=== PATIENT | female | born 1965 | race Caucasian/White ===

== ENCOUNTER 2023-01-20 15:19 | Emergency (ER) | payer MEDICARE, MEDICAID, SELFPAY ==
[2023-01-20 15:19] VITALS: BP 135/69; PULSE 90; RESP 18; TEMP 36.4; O2SAT 98
[2023-01-20 15:32] VITALS: BMI 39.7
[2023-01-20 15:34] VITALS: TEMP 36.4
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
--- NOTE | 2023-01-20 15:46 | RAD_ITS ---
EXAM: XR LUMBOSACRAL SPINE, 4 OR 5 VIEWS CLINICAL INDICATION: pain TECHNIQUE: Frontal, lateral and bilateral oblique views of the lumbar spine. This report was created using [employer] report [employer]ology technology. COMPARISON: None. FINDINGS: VERTEBRAE: There is anterior spondylolisthesis of L5 on S1 of 1.1 cm. Preserved vertebral body height. No fracture. Preservation of the normal lumbar lordosis. No significant facet arthropathy. DISC SPACES: No acute findings. Disc spaces are maintained. GASTROINTESTINAL TRACT: Unremarkable as visualized. Included bowel gas pattern is non-obstructive. RAD/L/S Spine Min 4 Views IMPRESSION: 1. No acute osseous abnormalities. 2. Anterior spondylolisthesis of L5 on S1. Electronically Signed: Fer Azevedo MD at 17:24 EDT ,
--- NOTE | 2023-01-20 15:46 | RAD_ITS ---
EXAM: XR CERVICAL SPINE, 2 OR 3 VIEWS CLINICAL INDICATION: pain TECHNIQUE: Frontal and lateral views of the cervical spine. This report was created using [employer] report generation technology. COMPARISON: None. FINDINGS: VERTEBRAE: Unremarkable. Preserved vertebral body height. No acute fracture. No spondylolisthesis. Preservation of the normal cervical lordosis. No significant facet arthropathy. DISC SPACES: There is disc space narrowing at C4-5, C5-6 and C6-7. SOFT TISSUES: Unremarkable. No prevertebral soft tissue widening. LUNG APICES: Clear. RAD/Cerv Spine 2 or 3 Views IMPRESSION: Degenerative changes with disc space narrowing. There is no acute osseous abnormality. Electronically Signed: Fer Azevedo MD at 16:17 EDT ,
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
[2023-01-20 16:45] VITALS: BP 130/70; PULSE 73; RESP 16; O2SAT 95
[2023-01-20] MEDS: Ketorolac 15 MG/ML Vial IM (16:53)
[2023-01-20 17:04] VITALS: RESP 17
[2023-01-20 17:38] VITALS: O2SAT 98
== END 2023-01-20 17:40 | disposition home or self-care (01) ==
PROVIDERS: Emergency Provider Emergency Medicine; PCP Family Medicine; Visit Provider Emergency Medicine
DX: S39.012A Strain of muscle, fascia and tendon of lower back, initial encounter (principal); M43.17 Spondylolisthesis, lumbosacral region; S16.1XXA Strain of muscle, fascia and tendon at neck level, initial encounter; V43.62XA Car passenger injured in collision with other type car in traffic accident, initial encounter
CPT/HCPCS: 72040; 72110; 73030; 96372; 99284